=== PATIENT | female | born 1935 | race Caucasian/White ===

== ENCOUNTER 2020-05-12 10:03 | Emergency (ER) | payer MEDICARE, BC ==
[2020-05-12 10:34] VITALS: BP 198/75; PULSE 55
--- NOTE | 2020-05-12 10:39 | CR ---
PROCEDURE INFORMATION: Exam: XR Abdomen, 2 Views Exam date and time: 05/12/2020 10:13 AM Age: 84 years old Clinical indication: Other: Abdominal and back pain, constipation TECHNIQUE: Imaging protocol: XR of the abdomen. Views: 2 Views. COMPARISON: CT Abdomen Pelvis w Cont 04/12/2019 10:22 AM FINDINGS: Lungs: Clear lung bases. Gastrointestinal tract: Unobstructed bowel. Bowel loops have normal caliber. Mild retained mottled soft tissue density stool. Intraperitoneal space: No ascites. Organs: No organomegaly. Bones/joints: Diffuse spine degenerative change. No acute fracture. Soft tissues: The radiographic silhouette of a safety pin is superimposed upon the pubic symphysis. Other findings: No uroliths. IMPRESSION: 1. Possible mild constipation. Unobstructed bowel. 2. No acute abnormalities. 3. Midline pelvic safety CT pin, presumed attached to clothing. Clinical correlation is advised.
[2020-05-12] MEDS ORDERED: Lactulose Soln 10 GM/15 ML 30 ML UD Cup PO ONE (10:41)
[2020-05-12] MEDS ORDERED: Bisacodyl 10 MG Supp RECTAL ONE (10:41)
--- NOTE | 2020-05-12 10:54 | EDM.PDOC ---
"Scribed by Latisha Bhatt 05/12/20 1024 for Chip Florence MD ED HPI GENERAL MEDICAL PROBLEM - General Chief Complaint: Back Pain or Injury Stated Complaint: BACK PAIN/CONSTIPATION Time Seen by Provider: 05/12/20 10:14 Source of Information: Reports: Patient, RN, RN Notes Reviewed History Limitations: Reports: No Limitations - History of Present Illness INITIAL COMMENTS - FREE TEXT/NARRATIVE: Patient presents to ER by POV with c/o left back pain for two days and concern that she is constipated. She states she is constipated from the 650 mg Tylenol she takes for pain. She states she has also used lidocaine patches as well which are not helping. The pain is constant but it gets worse and sharp when moving. No nausea, vomiting or diarrhea. No fever or chills. Onset: Gradual Duration: Constant Location: Reports: Abdomen, Back Quality: Reports: Ache Severity: Moderate Improves with: Reports: None Worsens with: Reports: Medication (attributes constipation to medication side ef fect) Associated Symptoms: Reports: No Other Symptoms Treatments O[employer]UP[employer] HE[employer] MANAGER: Reports: Acetaminophen, Other Medication(s) Left Back Pain Score (Numeric/FACES): 8 - Related Data Allergies Allergy/AdvReac Type Severity Reaction Status Date / Time No Known Allergies Allergy Verified 05/12/20 10:23 Home Meds: Home Meds Aspirin [Ecotrin] 81 mg PO DAILY 02/14/18 [History] Calcium Carb/Magnesium Oxid/D3 [Calcium Magnesium + D] 2 tab PO DAILY 02/14/18 [History] Furosemide 1 tab PO DAILY 02/14/18 [History] Garlic 1 tab PO DAILY 02/14/18 [History] Herbal Drugs [Colon Herbal Cleanser] 3 cap PO BEDTIME 02/14/18 [History] Levothyroxine [Synthroid] 1 tab PO DAILY 02/14/18 [History] Losartan [Cozaar] 100 mg PO DAILY 02/14/18 [History] Metoprolol Succinate 1 tab PO DAILY 02/14/18 [History] Multivitamin [Multivitamins] 1 cap PO DAILY 02/14/18 [History] Multivitamin with Minerals [Multivitamins with Minerals] 1 tab PO DAILY 02/14/18 [History] Omeprazole 40 mg PO DAILY 02/14/18 [History] Sertraline HCl 1 tab PO DAILY 02/14/18 [History] Simvastatin [Zocor] 20 mg PO DAILY 02/14/18 [History] traZODone HCl [Trazodone HCl] 1 tab PO BEDTIME 02/14/18 [History] Past Medical History Cardiovascular History: Reports: High Cholesterol, Hypertension Gastrointestinal History: Reports: GERD Endocrine/Metabolic History: Reports: Hypothyroidism Oncologic (Cancer) History: Reports: Other (See Below) (Endometrial CA) Social & Family History - Family History Family Medical History: Noncontributory - Living Situation & Occupation Living situation: Reports: Alone Occupation: Retired ED ROS GENERAL - Review of Systems Review Of Systems: Comprehensive ROS is negative, except as noted in HPI. ED EXAM,LOWER BACK PAIN/INJURY - Physical Exam Exam: See Below Exam Limited By: No Limitations General Appearance: Alert, WD/WN, No Apparent Distress Throat/Mouth: Normal Inspection, Normal Voice, No Airway Compromise Head: Atraumatic, Normocephalic Neck: Normal Inspection Respiratory/Chest: No Respiratory Distress, Lungs Clear, Normal Breath Sounds, No Accessory Muscle Use, Chest Non-Tender Cardiovascular: Regular Rate, Rhythm GI/Abdominal: Normal Bowel Sounds, Soft, No Distention, Tender (Mild generalized tenderness, worse at LUQ and LLQ). No: Guarding, Rigid, Rebound (Female) Exam: Deferred Back Exam: Full Range of Motion, CVA Tenderness (L) (mild). No: CVA Tenderness (R), Vertebral Tenderness Extremities: Normal Inspection Neurological: Alert, No Motor/Sensory Deficits Psychiatric: Normal Mood Skin Exam: Warm, Dry, Intact, Normal Color, No Rash Course - Vital Signs Last Recorded V/S: Last Vital Signs Temp 97.8 F 05/12/20 10:33 Pulse 55 L 05/12/20 10:33 Resp 14 05/12/20 10:33 BP 198/75 H 05/12/20 10:33 Pulse Ox 100 05/12/20 10:33 - Orders/Labs/Meds Labs: Laboratory Tests 05/12/20 Range/Units 10:12 Urine Color Yellow (YELLOW) Urine Appearance Slightly cloudy (CLEAR) Urine pH 7.0 (5.0-9.0) Ur Specific [place] 1.025 (1.005-1.030) Urine Protein 100 H (NEGATIVE) Urine Glucose (UA) Negative (NEGATIVE) Urine Ketones Negative (NEGATIVE) Urine Occult Blood Trace-intact H (NEGATIVE) Urine Nitrite Negative (NEGATIVE) Urine Bilirubin Negative (NEGATIVE) Urine Urobilinogen 0.2 (0.2-1.0) mg/dL Ur Leukocyte Esterase Negative (NEGATIVE) Urine RBC 5-10 H /HPF Urine WBC 0-5 (0-5/HPF) /HPF Ur Epithelial Cells Few (NOT SEEN) /HPF Urine Bacteria Rare (0-FEW/HPF) /HPF Urine Mucus Few H (NOT SEEN) /LPF Meds: Medications Discontinued Medications Generic Name Dose Route Start Last Admin Trade Name Freq PRN Reason Stop Dose Admin Bisacodyl 10 mg 05/12/20 10:41 Dulcolax RECTAL 05/12/20 10:42 ONETIME ONE Lactulose 40 gm 05/12/20 10:41 Cephulac PO 05/12/20 10:42 ONETIME ONE - Radiology Interpretation Free Text/Narrative:: [facility] [place] [facility] Final Radiology Report Call: [phone] assistance Online chat: [email or web address] Name: MATTI DOVE Age: 84Years F Date: 05/12/2020 SSN: -- : [id number] Study: CR ABDOMEN 2V AP FLAT UPRIGHT Requesting Physician: CHIP FLORENCE Images: 3 Addl Studies: Provided Clinical History: abdominal and back pain, constipation Contrast: Contrast Medium: Contrast Amount: Contrast Method: Page 1 of 2 PROCEDURE INFORMATION: Exam: XR Abdomen, 2 Views Exam date and time: 05/12/2020 10:13 AM Age: 84 years old Clinical indication: Other: Abdominal and back pain, constipation TECHNIQUE: Imaging protocol: XR of the abdomen. Views: 2 Views. COMPARISON: CT Abdomen Pelvis w Cont 04/12/2019 10:22 AM FINDINGS: Lungs: Clear lung bases. Gastrointestinal tract: Unobstructed bowel. Bowel loops have normal caliber. Mild retained mottled soft tissue density stool. Intraperitoneal space: No ascites. Organs: No organomegaly. Bones/joints: Diffuse spine degenerative change. No acute fracture. Soft tissues: The radiographic silhouette of a safety pin is superimposed upon the pubic symphysis. Other findings: No uroliths. IMPRESSION: 1. Possible mild constipation. Unobstructed bowel. 2. No acute abnormalities. 3. Midline pelvic safety CT pin, presumed attached to clothing. Clinical correlation is advised. Thank you for allowing us to participate in the care of your patient. MATTI DOVE | Final Radiology Report CONFIDENTIALITY STATEMENT This report is intended only for use by the referring physician, and only in accordance with law. If you received this in error, call [phone]. Page 2 of 2 Dictated and Authenticated by: Sharath Chen MD 05/12/2020 10:39 AM Central Time ([place] & [place]) Departure - Departure Time of Disposition: 10:53 Disposition: Against Medical Advice 07 Condition: Good Clinical Impression: Constipation Qualifiers: Constipation type: drug induced constipation Qualified Code(s): K59.03 - Drug induced constipation Back pain Qualifiers: Back pain location: low back pain Chronicity: acute Back pain laterality: left Sciatica presence: without sciatica Qualified Code(s): M54.5 - Low back pain - Discharge Information *PRESCRIPTION DRUG MONITORING PROGRAM REVIEWED*: Not Applicable *COPY OF PRESCRIPTION DRUG MONITORING REPORT IN PATIENT RYAN: Not Applicable Instructions: Constipation, Adult, [id number] Forms: ED Department Discharge Additional Instructions: Rx: Lactulose Drink plenty of water or juice. Follow up in clinic if not improved in 1 to 2 days. Sepsis Event Note (ED) - Focused Exam Vital Signs: Vital Signs Temp Pulse Resp BP Pulse Ox 05/12/20 10:33 97.8 F 55 L 14 198/75 H 100 I have read and agree with the documentation that has been completed regarding this visit. By signing this record, I attest that the documentation was completed in my physical presence and is an accurate record of the encounter."
== END 2020-05-12 11:06 | disposition home or self-care (01) ==
LOC: DL.ED 10:03
DX: K59.03 Drug induced constipation (principal); M54.5 Low back pain; T39.1X5A Adverse effect of 4-Aminophenol derivatives, initial encounter; E78.00 Pure hypercholesterolemia, unspecified; I10 Essential (primary) hypertension; Z79.82 Long term (current) use of aspirin; E03.9 Hypothyroidism, unspecified
CPT/HCPCS: 74019; 81001; 99283; A9270

== ENCOUNTER 2023-01-26 05:22 | Day surgery (SDC) | payer MEDICARE, BC ==
[~2023-01-26 05:22] MED LIST: Sodium Chloride 0.9% 10 ML Syringe FLUSH PRN; Sodium Chloride 0.9% 10 ML Syringe FLUSH SCH
[2023-01-26] MEDS ORDERED: fentaNYL 100 MCG/2 ML SDV IV ONE (05:23)
[2023-01-26] MEDS ORDERED: Midazolam 1 MG/ML 2 ML SDV IV ONE (05:23)
[2023-01-26] MEDS: Dextrose 5%-0.45% NaCl 1,000 ML IV SCH (06:07)
[2023-01-26] MEDS ORDERED: Midazolam 1 MG/ML 2 ML SDV ONE (06:13)
[2023-01-26] MEDS ORDERED: fentaNYL 100 MCG/2 ML SDV ONE (06:14)
[2023-01-26] MEDS: fentaNYL 100 MCG/2 ML SDV IV ONE ×3 (06:28→06:32)
[2023-01-26] MEDS: Midazolam 1 MG/ML 2 ML SDV IV ONE ×4 (06:29→06:40)
[2023-01-26 08:04] VITALS: BP 121/89; PULSE 53
== END 2023-01-26 08:43 | disposition home or self-care (01) ==
LOC: DL.ENDO 05:22
PROVIDERS: ATTEND Internal Medicine Gastroenterology
DX: K57.30 Diverticulosis of large intestine without perforation or abscess without bleeding (principal); K63.89 Other specified diseases of intestine; K21.9 Gastro-esophageal reflux disease without esophagitis; I10 Essential (primary) hypertension; E03.9 Hypothyroidism, unspecified; G47.00 Insomnia, unspecified; E78.5 Hyperlipidemia, unspecified; G47.33 Obstructive sleep apnea (adult) (pediatric); E66.09 Other obesity due to excess calories
CPT/HCPCS: J2250; J3010; J7042

== ENCOUNTER 2023-08-09 09:23 | Emergency (ER) | payer MEDICARE, BC ==
[2023-08-09 10:19] VITALS: BP 162/64; PULSE 58
== END 2023-08-09 10:43 | disposition home or self-care (01) ==
LOC: DL.ED 09:23
DX: S09.90XA Unspecified injury of head, initial encounter (principal); E78.00 Pure hypercholesterolemia, unspecified; I10 Essential (primary) hypertension; K21.9 Gastro-esophageal reflux disease without esophagitis; E03.9 Hypothyroidism, unspecified; Z79.82 Long term (current) use of aspirin; Z79.899 Other long term (current) drug therapy; W01.198A Fall on same level from slipping, tripping and stumbling with subsequent striking against other object, initial encounter
CPT/HCPCS: 70450; 72125; 99283

== ENCOUNTER 2024-03-28 13:17 | Inpatient (IN) | payer MEDICARE, BC ==
[2024-03-28] MEDS ORDERED: hydrALAZINE 20 MG/ML SDV IVPUSH PRN (14:02)
[2024-03-28] MEDS ORDERED: Metoprolol Tartrate 5 MG/5 ML SDV IVPUSH PRN (14:02)
[2024-03-28] MEDS ORDERED: Sodium Chloride 0.9% 10 ML Syringe FLUSH PRN (14:02)
[2024-03-28] MEDS ORDERED: Naloxone 2 MG/2 ML Syringe IVPUSH PRN (14:02)
[2024-03-28] MEDS ORDERED: Magnesium Hydroxide 400 MG/5 ML Susp 30 ML Cup PO PRN (14:02)
[2024-03-28] MEDS ORDERED: Albuterol/Ipratropium 3.0-0.5 MG/3 ML Neb Soln NEB PRN (14:02)
[2024-03-28] MEDS ORDERED: Polyethylene Glycol 3350 Powder 17 GM Packet PO PRN (14:02)
[2024-03-28] MEDS ORDERED: HYDROmorphone 0.5 MG/0.5 ML Syringe IVPUSH PRN (14:02)
[2024-03-28] MEDS ORDERED: Ondansetron 4 MG/2 ML SDV IVPUSH PRN (14:02)
[2024-03-28 14:29] LABS: HEMATOCRIT 36.8 % (37.0-47.0); HEMOGLOBIN 11.6 g/dL (12.0-16.0); MEAN CORPUSCULAR HEMOGLOBIN 32.4 pg (27.0-34.0); MEAN CORPUSCULAR HGB CONC 31.5 g/dL (33.0-35.0); MEAN CORPUSCULAR VOLUME 102.8 fL (80-100); PLATELET COUNT,PLT 92 10^3/uL (150-450); RED BLOOD CELL COUNT 3.58 10^6/uL (4.2-5.4); WHITE BLOOD CELL COUNT,WBC 2.9 10^3/uL (5.0-10.0)
[2024-03-28 14:31] LABS: BASOPHILS PERCENT AUTO 6.2 % (0.0-1.0); EOSINOPHILS PERCENT AUTO 2.1 % (1.0-3.0); LYMPHOCYTES PERCENT AUTO 29.6 % (20.5-50.1); MONOCYTES PERCENT AUTO 36.8 % (2-8); NEUTROPHILS PERCENT AUTO 25.3 % (42.2-75.2)
[2024-03-28 14:47] LABS: A/G RATIO 0.9; ALANINE AMINOTRANSFERASE,ALT 16 U/L (14-59); ALBUMIN 3.5 g/dL (3.4-5.0); ALKALINE PHOSPHATASE 49 U/L (46-116); ANION GAP 10.1 mEq/L (7-13); ASPARTATE AMNIOTRANSFERASE,AST 17 U/L (15-37); BILIRUBIN TOTAL 0.5 mg/dL (0.2-1.0); BLOOD UREA NITROGEN,BUN 11 mg/dL (7-18); BUN/CREATININE RATIO 15.1 (No establ ref range); CALCIUM 9.1 mg/dL (8.5-10.1); CARBON DIOXIDE,CO2 34 mmol/L (21-32); CHLORIDE,CL 103 mmol/L (98-107); CREATININE 0.73 mg/dL (0.55-1.02); EST CRCL DRUG DOSING (CG) 44.06 mL/min; GLUCOSE RANDOM 106 mg/dL (70-99); POTASSIUM,K 4.1 mmol/L (3.5-5.1); PROTEIN TOTAL,TP 7.2 g/dL (6.4-8.2); SODIUM,NA 143 mmol/L (136-145)
[2024-03-28 14:48] LABS: C-REACTIVE PROTEIN < 0.50 ng/dL (<=0.50); ESTIMATED GFR 79 mL/min (>=60)
[2024-03-28 15:01] LABS: BAND PERCENT MAN 3 %; LYMPHOCYTES PERCENT MAN 38 % (20-50); SEG NEUTROPHILS PERCENT MAN 33 % (42-75)
[2024-03-28 15:02] LABS: MONOCYTES PERCENT MAN 26 % (2-8)
[2024-03-28] MEDS: cefTRIAXone 1 GM Vial IVPUSH ONE (15:29)
[2024-03-28] MEDS: Azithromycin 500 MG in Sodium Chloride 0.9% 250 ML IV ONE (15:30)
[2024-03-28] MEDS: Saccharomyces Boulardii (Probiotic) 250 MG Cap PO SCH (20:55)
[2024-03-28] MEDS: Simvastatin 40 MG Tab PO SCH (20:56)
[2024-03-28] MEDS: traZODone 50 MG Tab PO SCH (20:56)
[2024-03-28] MEDS: guaiFENesin 600 MG Tab.ER PO SCH (20:56)
[2024-03-28] MEDS: Sennosides/Docusate Sodium 50-8.6 MG Tab PO PRN (21:01)
[2024-03-28] MEDS: Sodium Chloride 0.9% 10 ML Syringe FLUSH SCH (21:50)
[2024-03-29] MEDS: Levothyroxine 50 MCG Tab PO SCH (05:25)
[2024-03-29 07:44] LABS: WHITE BLOOD CELL COUNT,WBC 3.5 10^3/uL (5.0-10.0)
[2024-03-29 07:45] LABS: BASOPHILS PERCENT AUTO 5.5 % (0.0-1.0); EOSINOPHILS PERCENT AUTO 1.4 % (1.0-3.0); HEMATOCRIT 36.3 % (37.0-47.0); HEMOGLOBIN 11.2 g/dL (12.0-16.0); LYMPHOCYTES PERCENT AUTO 27.2 % (20.5-50.1); MEAN CORPUSCULAR HEMOGLOBIN 32.2 pg (27.0-34.0); MEAN CORPUSCULAR HGB CONC 30.9 g/dL (33.0-35.0); MEAN CORPUSCULAR VOLUME 104.3 fL (80-100); MONOCYTES PERCENT AUTO 39.6 % (2-8); NEUTROPHILS PERCENT AUTO 26.3 % (42.2-75.2); PLATELET COUNT,PLT 76 10^3/uL (150-450); RED BLOOD CELL COUNT 3.48 10^6/uL (4.2-5.4)
[2024-03-29 08:15] LABS: ANION GAP 9.6 mEq/L (7-13); CARBON DIOXIDE,CO2 33 mmol/L (21-32); CHLORIDE,CL 107 mmol/L (98-107); POTASSIUM,K 4.6 mmol/L (3.5-5.1); SODIUM,NA 145 mmol/L (136-145)
[2024-03-29 08:16] LABS: A/G RATIO 0.89; ALANINE AMINOTRANSFERASE,ALT 11 U/L (14-59); ALBUMIN 3.2 g/dL (3.4-5.0); ALKALINE PHOSPHATASE 47 U/L (46-116); ASPARTATE AMNIOTRANSFERASE,AST 18 U/L (15-37); BILIRUBIN TOTAL 0.4 mg/dL (0.2-1.0); BLOOD UREA NITROGEN,BUN 10 mg/dL (7-18); BUN/CREATININE RATIO 13.3 (No establ ref range); CALCIUM 9.1 mg/dL (8.5-10.1); CREATININE 0.75 mg/dL (0.55-1.02); EST CRCL DRUG DOSING (CG) 42.89 mL/min; ESTIMATED GFR 77 mL/min (>=60); GLUCOSE RANDOM 110 mg/dL (70-99); PROTEIN TOTAL,TP 6.8 g/dL (6.4-8.2)
[2024-03-29 08:17] LABS: C-REACTIVE PROTEIN < 0.50 ng/dL (<=0.50)
[2024-03-29] MEDS ORDERED: Metoprolol Succinate 50 MG Tab.ER PO SCH (09:00)
[2024-03-29 09:04] LABS: LYMPHOCYTES PERCENT MAN 27 % (20-50); SEG NEUTROPHILS PERCENT MAN 30 % (42-75)
[2024-03-29 09:05] LABS: BASOPHILS PERCENT MAN 4; EOSINOPHILS PERCENT MAN 2 % (1-3); MONOCYTES PERCENT MAN 37 % (2-8)
[2024-03-29] MEDS: Aspirin 81 MG Tab.EC PO SCH (10:21)
[2024-03-29] MEDS: Furosemide 40 MG Tab PO SCH (10:21)
[2024-03-29] MEDS: Omeprazole 20 MG Cap.CR PO SCH (10:21)
[2024-03-29] MEDS: Losartan 50 MG Tab PO SCH (10:22)
[2024-03-29] MEDS: Metoprolol Succinate 50 MG Tab.ER PO SCH (10:22)
[2024-03-29] MEDS: Lisinopril 10 MG Tab PO SCH (10:23)
[2024-03-29] MEDS: Multivitamin Tab PO SCH (10:23)
[2024-03-29] MEDS: cefTRIAXone 1 GM Vial IVPUSH SCH (10:23)
[2024-03-29] MEDS: Azithromycin 500 MG in Sodium Chloride 0.9% 250 ML IV SCH (10:24)
[2024-03-29] MEDS: amLODIPine 5 MG Tab PO SCH (10:41)
[2024-03-29] MEDS: Acetaminophen 325 MG Tab PO PRN (17:04)
[2024-03-29] MEDS: Melatonin 3 MG Tab PO PRN (20:45)
[2024-03-29] MEDS ORDERED: LORazepam 2 MG/ML SDV IVPUSH PRN (21:10)
[2024-03-30 07:10] LABS: ALBUMIN 2.9 g/dL (3.4-5.0); ANION GAP 7.2 mEq/L (7-13); BILIRUBIN TOTAL 0.4 mg/dL (0.2-1.0); BUN/CREATININE RATIO 17.9 (No establ ref range); C-REACTIVE PROTEIN 0.53 ng/dL (<=0.50); CALCIUM 8.8 mg/dL (8.5-10.1); CREATININE 0.67 mg/dL (0.55-1.02); EST CRCL DRUG DOSING (CG) 48.01 mL/min; MAGNESIUM 1.9 mg/dL (1.8-2.4); POTASSIUM,K 4.2 mmol/L (3.5-5.1); PROTEIN TOTAL,TP 6.4 g/dL (6.4-8.2)
[2024-03-30 07:12] LABS: A/G RATIO 0.83
[2024-03-30] MEDS ORDERED: Morphine 10 MG/ML Syringe IVPUSH ONE (07:49)
[2024-03-30] MEDS ORDERED: Morphine 10 MG/ML Syringe IVPUSH PRN (07:49)
[2024-03-30 09:51] LABS: EOSINOPHILS PERCENT MAN 1 % (1-3); LYMPHOCYTES PERCENT MAN 35 % (20-50); MONOCYTES PERCENT MAN 30 % (2-8); SEG NEUTROPHILS PERCENT MAN 34 % (42-75)
[2024-03-30] MEDS: traMADol 50 MG Tab PO PRN (12:23)
[2024-03-30] MEDS: hydrALAZINE 25 MG Tab PO STA (13:21)
[2024-03-30 14:33] VITALS: BP 156/67; PULSE 57
== END 2024-03-30 15:20 | disposition home or self-care (01) | DRG 193 ==
LOC: DL.MS 13:17
PROVIDERS: ADMIT Internal Medicine; ATTEND Internal Medicine
DX: J18.9 Pneumonia, unspecified organism (principal); J96.01 Acute respiratory failure with hypoxia; E11.9 Type 2 diabetes mellitus without complications; E03.9 Hypothyroidism, unspecified; E66.9 Obesity, unspecified; Z66 Do not resuscitate; K21.9 Gastro-esophageal reflux disease without esophagitis; G47.33 Obstructive sleep apnea (adult) (pediatric); G89.29 Other chronic pain; M54.50 Low back pain, unspecified; I10 Essential (primary) hypertension; F32.A Depression, unspecified; M19.90 Unspecified osteoarthritis, unspecified site; K59.09 Other constipation; Z79.82 Long term (current) use of aspirin; Z79.890 Hormone replacement therapy; Z79.899 Other long term (current) drug therapy; Z98.49 Cataract extraction status, unspecified eye; Z90.710 Acquired absence of both cervix and uterus; Z68.34 Body mass index [BMI] 34.0-34.9, adult
CPT/HCPCS: 36415; 71045; 72125; 73200-RT; 80053; 83735; 85025; 86140; 87804; A9270-GY; J0456; J0696; J3490; J7050; U0002

== ENCOUNTER 2024-09-13 13:15 | Inpatient (IN) | payer MEDICARE, BC ==
[2024-09-13] MEDS: Sodium Chloride 0.9% 1,000 ML IV ONE (13:26)
[2024-09-13] MEDS: Albuterol 0.083% 2.5 MG/3 ML Neb Soln NEB ONE (13:26)
[2024-09-13 13:37] LABS: HEMATOCRIT 31.4 % (37.0-47.0); HEMOGLOBIN 10.3 g/dL (12.0-16.0); MEAN CORPUSCULAR HEMOGLOBIN 31.8 pg (27.0-34.0); MEAN CORPUSCULAR HGB CONC 32.8 g/dL (33.0-35.0); MEAN CORPUSCULAR VOLUME 96.9 fL (80-100); PLATELET COUNT,PLT 130 10^3/uL (150-450); RED BLOOD CELL COUNT 3.24 10^6/uL (4.2-5.4); WHITE BLOOD CELL COUNT,WBC 33.6 10^3/uL (5.0-10.0)
[2024-09-13 13:53] LABS: ALANINE AMINOTRANSFERASE,ALT 20 U/L (14-59); ALBUMIN 2.6 g/dL (3.4-5.0); ALKALINE PHOSPHATASE 71 U/L (46-116); ANION GAP 10.5 mEq/L (7-13); ASPARTATE AMNIOTRANSFERASE,AST 25 U/L (15-37); BILIRUBIN TOTAL 0.6 mg/dL (0.2-1.0); BLOOD UREA NITROGEN,BUN 45 mg/dL (7-18); CALCIUM 9.1 mg/dL (8.5-10.1); CARBON DIOXIDE,CO2 33 mmol/L (21-32); CHLORIDE,CL 89 mmol/L (98-107); CREATININE 2.65 mg/dL (0.55-1.02); EST CRCL DRUG DOSING (CG) 12.43 mL/min; GLUCOSE RANDOM 134 mg/dL (70-99); MAGNESIUM 1.6 mg/dL (1.8-2.4); POTASSIUM,K 3.5 mmol/L (3.5-5.1); PROTEIN TOTAL,TP 7.3 g/dL (6.4-8.2); SODIUM,NA 129 mmol/L (136-145)
[2024-09-13 13:56] LABS: LACTIC ACID 1.5 mmol/L (0.4-2.0)
[2024-09-13] MEDS: Piperacillin/Tazobactam 4.5 GM in Sodium Chloride 0.9% 100 ML IV ONE (14:04)
[2024-09-13 14:05] LABS: A/G RATIO 0.55; C-REACTIVE PROTEIN > 25.00 ng/dL (<=0.50); ESTIMATED GFR 17 mL/min (>=60)
[2024-09-13 14:11] LABS: BAND PERCENT MAN 6 %; LYMPHOCYTES PERCENT MAN 7 % (20-50); MONOCYTES PERCENT MAN 10 % (2-8); SEG NEUTROPHILS PERCENT MAN 77 % (42-75)
[2024-09-13 14:13] LABS: APPEARANCE,URINE SLIGHTLY CLOUDY (CLEAR); BILIRUBIN,URINE SMALL (NEGATIVE); COLOR,URINE YELLOW (YELLOW); GLUCOSE,URINE NEGATIVE (NEGATIVE); KETONES,URINE NEGATIVE (NEGATIVE); LEUKOCYTE ESTERASE,URINE TRACE (NEGATIVE); NITRITE,URINE NEGATIVE (NEGATIVE); OCCULT BLOOD,URINE SMALL (NEGATIVE); PH,URINE 5.5 (5.0-9.0); PROTEIN,URINE >=300 (NEGATIVE); UROBILINOGEN,URINE 0.2 mg/dL (0.2-1.0)
[2024-09-13 14:36] LABS: RBC,URINE 50-75 /HPF (0-5); WBC,URINE 20-30 /HPF (0-5/HPF)
[2024-09-13 14:37] LABS: AMORPHOUS SEDIMENT,URINE MODERATE /HPF (NOT SEEN); BACTERIA,URINE MODERATE /HPF (0-FEW/HPF); EPITHELIAL CELLS,URINE FEW /HPF (NOT SEEN); HYALINE CASTS,URINE RARE; MUCUS,URINE FEW /LPF (NOT SEEN)
[2024-09-13] MEDS: VANCOmycin 1.75 GM in Sodium Chloride 0.9% 500 ML IV ONE (14:56)
[2024-09-13] MEDS: Magnesium Sulfate/Water Premix 2 GM in Premix Bag 1 BAG IV ONE (14:56)
[2024-09-13] MEDS: VANCOmycin 750 MG SDV ONE (14:57)
[2024-09-13] MEDS: Sodium Chloride 0.9% 500 ML IV SCH (15:35)
[2024-09-13] MEDS ORDERED: Metoprolol Tartrate 5 MG/5 ML SDV IVPUSH PRN (17:00)
[2024-09-13] MEDS ORDERED: Sennosides/Docusate Sodium 50-8.6 MG Tab PO PRN (17:09)
[2024-09-13] MEDS ORDERED: Polyethylene Glycol 3350 Powder 17 GM Packet PO PRN (17:09)
[2024-09-13] MEDS ORDERED: Magnesium Hydroxide 400 MG/5 ML Susp 30 ML Cup PO PRN (17:09)
[2024-09-13] MEDS ORDERED: Bisacodyl 5 MG Tab PO PRN (17:09)
[2024-09-13] MEDS ORDERED: HYDROmorphone 0.5 MG/0.5 ML Syringe IVPUSH PRN (17:09)
[2024-09-13] MEDS ORDERED: Metoclopramide 10 MG/2 ML SDV IV PRN (17:09)
[2024-09-13] MEDS ORDERED: Melatonin 3 MG Tab PO PRN (17:09)
[2024-09-13] MEDS ORDERED: Naloxone 2 MG/2 ML Syringe IVPUSH PRN (17:09)
[2024-09-13] MEDS ORDERED: Ondansetron 4 MG/2 ML SDV IVPUSH PRN (17:09)
[2024-09-13] MEDS: Lactated Ringers 1,500 ML IV SCH (17:47)
[2024-09-13] MEDS: traZODone 50 MG Tab PO SCH (20:41)
[2024-09-13] MEDS: hydrALAZINE 25 MG Tab PO SCH (20:41)
[2024-09-13] MEDS: Saccharomyces Boulardii (Probiotic) 250 MG Cap PO SCH (20:41)
[2024-09-13] MEDS: Acetaminophen 325 MG Tab PO PRN (21:35)
[2024-09-14 06:36] LABS: HEMATOCRIT 29.1 % (37.0-47.0); HEMOGLOBIN 9.1 g/dL (12.0-16.0); MEAN CORPUSCULAR HGB CONC 31.3 g/dL (33.0-35.0); PLATELET COUNT,PLT 122 10^3/uL (150-450); RED BLOOD CELL COUNT 2.94 10^6/uL (4.2-5.4); WHITE BLOOD CELL COUNT,WBC 24.2 10^3/uL (5.0-10.0)
[2024-09-14 06:57] LABS: ALANINE AMINOTRANSFERASE,ALT 16 U/L (14-59); ALKALINE PHOSPHATASE 64 U/L (46-116); ANION GAP 9.7 mEq/L (7-13); ASPARTATE AMNIOTRANSFERASE,AST 21 U/L (15-37); BILIRUBIN TOTAL 0.4 mg/dL (0.2-1.0); BLOOD UREA NITROGEN,BUN 43 mg/dL (7-18); BUN/CREATININE RATIO 18.5 (No establ ref range); CALCIUM 8.6 mg/dL (8.5-10.1); CARBON DIOXIDE,CO2 33 mmol/L (21-32); CHLORIDE,CL 97 mmol/L (98-107); CREATININE 2.33 mg/dL (0.55-1.02); EST CRCL DRUG DOSING (CG) 14.13 mL/min; GLUCOSE RANDOM 126 mg/dL (70-99); MAGNESIUM 2.2 mg/dL (1.8-2.4); POTASSIUM,K 3.7 mmol/L (3.5-5.1); PROTEIN TOTAL,TP 6.3 g/dL (6.4-8.2); SODIUM,NA 136 mmol/L (136-145)
[2024-09-14 06:59] LABS: BAND PERCENT MAN 1 %; LYMPHOCYTES PERCENT MAN 2 % (20-50); MONOCYTES PERCENT MAN 14 % (2-8); SEG NEUTROPHILS PERCENT MAN 83 % (42-75)
[2024-09-14 07:06] LABS: A/G RATIO 0.47; C-REACTIVE PROTEIN > 25.00 ng/dL (<=0.50); ESTIMATED GFR 20 mL/min (>=60)
[2024-09-14] MEDS: Multivitamin Tab PO SCH (09:23)
[2024-09-14] MEDS: Omeprazole 20 MG Cap.CR PO SCH (09:23)
[2024-09-14] MEDS: Aspirin 81 MG Tab.EC PO SCH (09:24)
[2024-09-14] MEDS: Escitalopram 10 MG Tab PO SCH (09:24)
[2024-09-14] MEDS: Levothyroxine 50 MCG Tab PO SCH (09:28)
[2024-09-14] MEDS: Azithromycin 500 MG in Sodium Chloride 0.9% 250 ML IV SCH (09:29)
[2024-09-14] MEDS: Ampicillin/Sulbactam Na 1.5 GM in Sodium Chloride 0.9% 100 ML IV SCH (12:16)
[2024-09-14] MEDS: Albuterol/Ipratropium 3.0-0.5 MG/3 ML Neb Soln NEB PRN (18:00)
[2024-09-15 06:29] LABS: HEMATOCRIT 28.1 % (37.0-47.0); HEMOGLOBIN 9.2 g/dL (12.0-16.0); MEAN CORPUSCULAR HEMOGLOBIN 31.9 pg (27.0-34.0); MEAN CORPUSCULAR HGB CONC 32.7 g/dL (33.0-35.0); MEAN CORPUSCULAR VOLUME 97.6 fL (80-100); PLATELET COUNT,PLT 126 10^3/uL (150-450); RED BLOOD CELL COUNT 2.88 10^6/uL (4.2-5.4); WHITE BLOOD CELL COUNT,WBC 19.1 10^3/uL (5.0-10.0)
[2024-09-15 06:57] LABS: ALBUMIN 1.8 g/dL (3.4-5.0); ANION GAP 10.1 mEq/L (7-13); BILIRUBIN TOTAL 0.4 mg/dL (0.2-1.0); C-REACTIVE PROTEIN 23.08 ng/dL (<=0.50); CALCIUM 8.4 mg/dL (8.5-10.1); CREATININE 1.73 mg/dL (0.55-1.02); EST CRCL DRUG DOSING (CG) 19.04 mL/min; POTASSIUM,K 3.1 mmol/L (3.5-5.1); PROTEIN TOTAL,TP 5.9 g/dL (6.4-8.2)
[2024-09-15 07:01] LABS: A/G RATIO 0.44
[2024-09-15 07:17] LABS: BAND PERCENT MAN 13 %; LYMPHOCYTES PERCENT MAN 3 % (20-50); MONOCYTES PERCENT MAN 10 % (2-8); SEG NEUTROPHILS PERCENT MAN 74 % (42-75)
[2024-09-15] MEDS: Sodium Chloride 0.9% 10 ML Syringe FLUSH PRN (08:08)
[2024-09-15] MEDS: Potassium Chloride 10 MEQ Tab.ER PO ONE (09:39)
[2024-09-15] MEDS ORDERED: Benzocaine/Cetylpyridinium/Menthol Lozenge MUCMEM PRN (19:22)
[2024-09-15] MEDS: cefTRIAXone 2 GM Vial IVPUSH ONE (21:24)
[2024-09-16] MEDS: Lidocaine 5% 700 MG Patch TOP SCH (00:27)
[2024-09-16 06:25] LABS: HEMATOCRIT 28.6 % (37.0-47.0); HEMOGLOBIN 9.1 g/dL (12.0-16.0); MEAN CORPUSCULAR HEMOGLOBIN 31.5 pg (27.0-34.0); MEAN CORPUSCULAR HGB CONC 31.8 g/dL (33.0-35.0); PLATELET COUNT,PLT 137 10^3/uL (150-450); RED BLOOD CELL COUNT 2.89 10^6/uL (4.2-5.4); WHITE BLOOD CELL COUNT,WBC 19.9 10^3/uL (5.0-10.0)
[2024-09-16 07:01] LABS: ALBUMIN 1.8 g/dL (3.4-5.0); ANION GAP 10.8 mEq/L (7-13); BILIRUBIN TOTAL 0.3 mg/dL (0.2-1.0); BUN/CREATININE RATIO 21.9 (No establ ref range); C-REACTIVE PROTEIN 18.4 ng/dL (<=0.50); CALCIUM 8.4 mg/dL (8.5-10.1); CREATININE 1.28 mg/dL (0.55-1.02); EST CRCL DRUG DOSING (CG) 25.73 mL/min; MAGNESIUM 2.1 mg/dL (1.8-2.4); POTASSIUM,K 3.8 mmol/L (3.5-5.1); PROTEIN TOTAL,TP 6.3 g/dL (6.4-8.2)
[2024-09-16 07:04] LABS: A/G RATIO 0.4
[2024-09-16 08:31] LABS: BAND PERCENT MAN 12 %; SEG NEUTROPHILS PERCENT MAN 67 % (42-75)
[2024-09-16 08:32] LABS: LYMPHOCYTES PERCENT MAN 2 % (20-50); METAMYELOCYTE PERCENT MAN 2; MONOCYTES PERCENT MAN 15 % (2-8); MYELOCYTE PERCENT MAN 2; PLATELET COUNT ESTIMATE DECREASED
[2024-09-16] MEDS: cefTRIAXone 1 GM Vial IVPUSH SCH (09:30)
[2024-09-16 14:21] LABS: CORONAVIRUS COVID-19 NAA NEGATIVE (NEGATIVE); INFLUENZA A NAA NEGATIVE (NEGATIVE); INFLUENZA B NAA NEGATIVE (NEGATIVE); RESPIRATORY SYNCYTIAL VIR NAA NEGATIVE (NEGATIVE)
[2024-09-16] MEDS: Simethicone 80 MG Tab.Chew PO PRN (21:06)
[2024-09-17 06:23] LABS: HEMATOCRIT 27.3 % (37.0-47.0); HEMOGLOBIN 8.6 g/dL (12.0-16.0); MEAN CORPUSCULAR HGB CONC 31.5 g/dL (33.0-35.0); MEAN CORPUSCULAR VOLUME 101.5 fL (80-100); PLATELET COUNT,PLT 141 10^3/uL (150-450); RED BLOOD CELL COUNT 2.69 10^6/uL (4.2-5.4); WHITE BLOOD CELL COUNT,WBC 20.2 10^3/uL (5.0-10.0)
[2024-09-17 06:34] LABS: ALBUMIN 1.7 g/dL (3.4-5.0); ANION GAP 10.2 mEq/L (7-13); BILIRUBIN TOTAL 0.3 mg/dL (0.2-1.0); BUN/CREATININE RATIO 21.4 (No establ ref range); C-REACTIVE PROTEIN 15.95 ng/dL (<=0.50); CALCIUM 8.5 mg/dL (8.5-10.1); CREATININE 1.03 mg/dL (0.55-1.02); EST CRCL DRUG DOSING (CG) 31.97 mL/min; POTASSIUM,K 4.2 mmol/L (3.5-5.1); PROTEIN TOTAL,TP 6.4 g/dL (6.4-8.2)
[2024-09-17 06:44] LABS: A/G RATIO 0.36
[2024-09-17] MEDS ORDERED: Modafinil 100 MG Tab PO SCH (08:00)
[2024-09-17] MEDS: traMADol 50 MG Tab PO PRN (08:51)
[2024-09-17] MEDS: Modafinil 100 MG Tab PO SCH (08:53)
[2024-09-17 09:12] LABS: BAND PERCENT MAN 7 %; LYMPHOCYTES PERCENT MAN 15 % (20-50); METAMYELOCYTE PERCENT MAN 2; MONOCYTES PERCENT MAN 14 % (2-8); MYELOCYTE PERCENT MAN 4; SEG NEUTROPHILS PERCENT MAN 58 % (42-75)
[2024-09-17 09:13] LABS: GIANT PLATELETS FEW; PLASMACYTOID LYMPHOCYTES RARE; PLATELET COUNT ESTIMATE DECREASED; REACTIVE LYMPHOCYTES MODERATE
[2024-09-17] MEDS: Albumin 25% 12.5 GM in Premix Bag 1 BAG IV SCH (10:26)
[2024-09-17] MEDS: Furosemide 100 MG in Sodium Chloride 0.9% 90 ML IV SCH (11:07)
[2024-09-17] MEDS: Losartan 25 MG Tab PO ONE (12:21)
[2024-09-17] MEDS: hydrALAZINE 20 MG/ML SDV IVPUSH PRN (17:41)
[2024-09-17] MEDS ORDERED: 50% Dextrose in Water 50 ML Syringe IVPUSH PRN (23:21)
[2024-09-17] MEDS ORDERED: Glucagon,Human Recombinant 1 MG Vial IM PRN (23:21)
[2024-09-18] MEDS: Insulin Lispro 100 Units/ML 3 ML Vial SUBCUT SCH (00:56)
[2024-09-18 09:23] LABS: HEMATOCRIT 28.1 % (37.0-47.0); HEMOGLOBIN 8.7 g/dL (12.0-16.0); MEAN CORPUSCULAR HEMOGLOBIN 31.9 pg (27.0-34.0); MEAN CORPUSCULAR VOLUME 102.9 fL (80-100); PLATELET COUNT,PLT 143 10^3/uL (150-450); RED BLOOD CELL COUNT 2.73 10^6/uL (4.2-5.4); WHITE BLOOD CELL COUNT,WBC 18.8 10^3/uL (5.0-10.0)
[2024-09-18] MEDS: Metoprolol Succinate 25 MG Tab.ER PO SCH (09:32)
[2024-09-18] MEDS: Losartan 25 MG Tab PO SCH (09:34)
[2024-09-18 09:41] LABS: ALBUMIN 2.6 g/dL (3.4-5.0); ANION GAP 6.6 mEq/L (7-13); BILIRUBIN TOTAL 0.3 mg/dL (0.2-1.0); BUN/CREATININE RATIO 14.8 (No establ ref range); C-REACTIVE PROTEIN 13.51 ng/dL (<=0.50); CALCIUM 8.6 mg/dL (8.5-10.1); CREATININE 1.15 mg/dL (0.55-1.02); EST CRCL DRUG DOSING (CG) 28.64 mL/min; MAGNESIUM 1.7 mg/dL (1.8-2.4); POTASSIUM,K 3.6 mmol/L (3.5-5.1)
[2024-09-18 09:42] LABS: A/G RATIO 0.59
[2024-09-18 10:59] LABS: BAND PERCENT MAN 3 %; LYMPHOCYTES PERCENT MAN 17 % (20-50); MONOCYTES PERCENT MAN 19 % (2-8); SEG NEUTROPHILS PERCENT MAN 61 % (42-75)
[2024-09-18 11:00] LABS: ATYPICAL LYMPHOCYTES FEW
[2024-09-18 11:11] VITALS: BP 138/66; PULSE 87
[2024-09-18] MEDS: Acetaminophen 325 MG Tab PO ONE (12:17)
[2024-09-18] MEDS ORDERED: Acetaminophen 325 MG Tab PO SCH (21:00)
[2024-09-18] MEDS ORDERED: Mirtazapine 15 MG Tab PO SCH (21:00)
[2024-09-19] MEDS ORDERED: Modafinil 100 MG Tab PO SCH (09:00)
[2024-09-19] MEDS ORDERED: Modafinil 100 MG Tab PO ONE (11:00)
== END 2024-09-18 14:55 | disposition swing bed (61) | DRG 871 ==
LOC: DL.ED 13:15 → DL.MS 15:18
PROVIDERS: ADMIT Internal Medicine; ATTEND Internal Medicine
PROC: 3E03329 Introduction of Other Anti-infective into Peripheral Vein, Percutaneous Approach (ICD-10-PCS; principal; 2024-09-13)
PROC: 5A09357 Assistance with Respiratory Ventilation, Less than 24 Consecutive Hours, Continuous Positive Airway Pressure (ICD-10-PCS; 2024-09-13)
DX: A41.9 Sepsis, unspecified organism (principal); A41.51 Sepsis due to Escherichia coli [E. coli]; J96.01 Acute respiratory failure with hypoxia; N39.0 Urinary tract infection, site not specified; N17.9 Acute kidney failure, unspecified; E87.1 Hypo-osmolality and hyponatremia; I10 Essential (primary) hypertension; R65.20 Severe sepsis without septic shock; E86.0 Dehydration; Z66 Do not resuscitate; H91.90 Unspecified hearing loss, unspecified ear; H54.7 Unspecified visual loss; E78.00 Pure hypercholesterolemia, unspecified; K59.09 Other constipation; K21.9 Gastro-esophageal reflux disease without esophagitis; M19.90 Unspecified osteoarthritis, unspecified site; E03.9 Hypothyroidism, unspecified; F32.A Depression, unspecified; Z96.659 Presence of unspecified artificial knee joint; I11.0 Hypertensive heart disease with heart failure; I50.9 Heart failure, unspecified; E83.42 Hypomagnesemia; I27.20 Pulmonary hypertension, unspecified; G47.33 Obstructive sleep apnea (adult) (pediatric); G89.29 Other chronic pain; M54.31 Sciatica, right side; M48.02 Spinal stenosis, cervical region; M48.061 Spinal stenosis, lumbar region without neurogenic claudication; D69.6 Thrombocytopenia, unspecified; E87.8 Other disorders of electrolyte and fluid balance, not elsewhere classified; E83.52 Hypercalcemia; E11.65 Type 2 diabetes mellitus with hyperglycemia; E88.09 Other disorders of plasma-protein metabolism, not elsewhere classified; E66.811 Obesity, class 1; Z98.49 Cataract extraction status, unspecified eye; Z90.710 Acquired absence of both cervix and uterus; Z90.722 Acquired absence of ovaries, bilateral; Z99.81 Dependence on supplemental oxygen; Z79.82 Long term (current) use of aspirin; Z79.899 Other long term (current) drug therapy; Z98.890 Other specified postprocedural states; Z68.34 Body mass index [BMI] 34.0-34.9, adult; Z87.81 Personal history of (healed) traumatic fracture
CPT/HCPCS: 0241U; 36415; 51702; 71045; 71250; 74176; 80053; 81001; 82306; 82550; 83605; 83735; 83880; 84145; 85025; 86140; 87040; 87077; 87081; 87086; 87088; 87186; 87428; 87430; 93005; 94010; 94640; 96361; 96365; 96367; 96368; 99233; 99238; 99285; A9270-GY; J0295; J0360; J0456; J0696; J1940; J2543; J3475; J3490; J7030; J7040; J7050; J7120; J7613-GY; J7620-GY; P9047

== ENCOUNTER 2024-09-18 10:36 | Inpatient (IN) | payer MEDICARE, BC ==
[2024-09-18] MEDS ORDERED: Sodium Chloride 0.9% 10 ML Syringe FLUSH PRN ×2 (14:27)
[2024-09-18] MEDS ORDERED: Naloxone 2 MG/2 ML Syringe IVPUSH PRN (14:27)
[2024-09-18] MEDS ORDERED: Benzocaine/Cetylpyridinium/Menthol Lozenge MUCMEM PRN (14:27)
[2024-09-18] MEDS ORDERED: Bisacodyl 5 MG Tab PO PRN (14:27)
[2024-09-18] MEDS ORDERED: hydrALAZINE 20 MG/ML SDV IVPUSH PRN (14:27)
[2024-09-18] MEDS ORDERED: Ondansetron 4 MG/2 ML SDV IVPUSH PRN (14:27)
[2024-09-18] MEDS ORDERED: Sennosides/Docusate Sodium 50-8.6 MG Tab PO PRN (14:27)
[2024-09-18] MEDS ORDERED: Metoclopramide 10 MG/2 ML SDV IV PRN (14:27)
[2024-09-18] MEDS ORDERED: Polyethylene Glycol 3350 Powder 17 GM Packet PO PRN (14:27)
[2024-09-18] MEDS ORDERED: Simethicone 80 MG Tab.Chew PO PRN (14:27)
[2024-09-18] MEDS ORDERED: Magnesium Hydroxide 400 MG/5 ML Susp 30 ML Cup PO PRN (14:27)
[2024-09-18] MEDS ORDERED: Melatonin 3 MG Tab PO PRN (14:27)
[2024-09-18] MEDS: Saccharomyces Boulardii (Probiotic) 250 MG Cap PO SCH (20:29)
[2024-09-18] MEDS: amLODIPine 5 MG Tab PO SCH (20:29)
[2024-09-18] MEDS: hydrALAZINE 25 MG Tab PO SCH (20:29)
[2024-09-18] MEDS: Mirtazapine 15 MG Tab PO SCH (20:30)
[2024-09-18] MEDS: traZODone 50 MG Tab PO SCH (20:31)
[2024-09-18] MEDS: Acetaminophen 325 MG Tab PO SCH (20:31)
[2024-09-18] MEDS: Melatonin 3 MG Tab PO PRN (20:31)
[2024-09-18] MEDS: Sodium Chloride 0.9% 10 ML Syringe FLUSH SCH (20:34)
[2024-09-18] MEDS: Diclofenac Sodium 1% Gel 100 GM Tube TOP PRN (20:36)
[2024-09-18] MEDS ORDERED: traZODone 50 MG Tab PO SCH (21:00)
[2024-09-19] MEDS: traMADol 50 MG Tab PO PRN (01:08)
[2024-09-19] MEDS: Levothyroxine 50 MCG Tab PO SCH (05:36)
[2024-09-19] MEDS: Albuterol/Ipratropium 3.0-0.5 MG/3 ML Neb Soln NEB PRN (08:12)
[2024-09-19] MEDS: Azithromycin 500 MG in Sodium Chloride 0.9% 250 ML IV SCH (08:21)
[2024-09-19] MEDS: cefTRIAXone 1 GM Vial IVPUSH SCH (08:24)
[2024-09-19] MEDS: Escitalopram 10 MG Tab PO SCH (08:26)
[2024-09-19] MEDS: Aspirin 81 MG Tab.EC PO SCH (08:26)
[2024-09-19] MEDS: Hydrochlorothiazide 25 MG Tab PO SCH (08:26)
[2024-09-19] MEDS: Losartan 25 MG Tab PO SCH (08:26)
[2024-09-19] MEDS: Metoprolol Succinate 25 MG Tab.ER PO SCH (08:27)
[2024-09-19] MEDS: Modafinil 100 MG Tab PO SCH (08:27)
[2024-09-19] MEDS: Omeprazole 20 MG Cap.CR PO SCH (08:28)
[2024-09-19] MEDS: Lidocaine 5% 700 MG Patch TOP SCH (08:32)
[2024-09-19] MEDS: Multivitamin Tab PO SCH (12:01)
[2024-09-19] MEDS: Modafinil 100 MG Tab PO ONE (12:01)
[2024-09-19] MEDS: Dexamethasone 4 MG/ML SDV IVPUSH ONE (12:40)
[2024-09-19] MEDS: Acetaminophen/HYDROcodone 325-10 MG Tab PO ONE (12:58)
[2024-09-19] MEDS: Formoterol/Mometasone 100-5 MCG 8.8 GM Inhaler INH SCH (13:29)
[2024-09-19] MEDS: Acetaminophen/oxyCODONE 325-5 MG Tab PO PRN (21:34)
[2024-09-20 09:32] LABS: ANION GAP 9.9 mEq/L (7-13); CREATININE 1.1 mg/dL (0.55-1.02); EST CRCL DRUG DOSING (CG) 29.94 mL/min; POTASSIUM,K 3.9 mmol/L (3.5-5.1); URIC ACID 5.5 mg/dL (2.6-6.0)
[2024-09-20] MEDS: predniSONE 20 MG Tab PO SCH (10:23)
[2024-09-20] MEDS: Furosemide 40 MG Tab PO SCH (13:28)
[2024-09-22 06:35] LABS: HEMATOCRIT 26.9 % (37.0-47.0); HEMOGLOBIN 8.4 g/dL (12.0-16.0); MEAN CORPUSCULAR HEMOGLOBIN 32.2 pg (27.0-34.0); MEAN CORPUSCULAR HGB CONC 31.2 g/dL (33.0-35.0); MEAN CORPUSCULAR VOLUME 103.1 fL (80-100); PLATELET COUNT,PLT 154 10^3/uL (150-450); RED BLOOD CELL COUNT 2.61 10^6/uL (4.2-5.4); WHITE BLOOD CELL COUNT,WBC 19.4 10^3/uL (5.0-10.0)
[2024-09-22 06:48] LABS: ALBUMIN 2.3 g/dL (3.4-5.0); ANION GAP 5.2 mEq/L (7-13); BILIRUBIN TOTAL 0.2 mg/dL (0.2-1.0); BUN/CREATININE RATIO 22.1 (No establ ref range); CREATININE 1.04 mg/dL (0.55-1.02); EST CRCL DRUG DOSING (CG) 31.67 mL/min; MAGNESIUM 1.8 mg/dL (1.8-2.4); POTASSIUM,K 4.2 mmol/L (3.5-5.1); PROTEIN TOTAL,TP 6.9 g/dL (6.4-8.2)
[2024-09-22 06:53] LABS: A/G RATIO 0.5
[2024-09-22 07:26] LABS: BAND PERCENT MAN 11 %; LYMPHOCYTES PERCENT MAN 13 % (20-50); MONOCYTES PERCENT MAN 10 % (2-8); SEG NEUTROPHILS PERCENT MAN 76 % (42-75)
[2024-09-23] MEDS: Mirtazapine 15 MG Tab PO ONE (20:27)
[2024-09-24] MEDS: Mirtazapine 15 MG Tab PO SCH (20:20)
[2024-09-25 09:14] LABS: HEMATOCRIT 28.5 % (37.0-47.0); HEMOGLOBIN 8.7 g/dL (12.0-16.0); MEAN CORPUSCULAR HEMOGLOBIN 31.3 pg (27.0-34.0); MEAN CORPUSCULAR HGB CONC 30.5 g/dL (33.0-35.0); MEAN CORPUSCULAR VOLUME 102.5 fL (80-100); PLATELET COUNT,PLT 156 10^3/uL (150-450); RED BLOOD CELL COUNT 2.78 10^6/uL (4.2-5.4); WHITE BLOOD CELL COUNT,WBC 12.5 10^3/uL (5.0-10.0)
[2024-09-25 10:25] LABS: BAND PERCENT MAN 5 %; LYMPHOCYTES % ATYPICAL MANUAL 3 %; LYMPHOCYTES PERCENT MAN 16 % (20-50); METAMYELOCYTE PERCENT MAN 3; MONOCYTES PERCENT MAN 7 % (2-8); SEG NEUTROPHILS PERCENT MAN 66 % (42-75)
[2024-09-25 10:54] LABS: ALBUMIN 2.5 g/dL (3.4-5.0); ANION GAP 13.9 mEq/L (7-13); BILIRUBIN TOTAL 0.2 mg/dL (0.2-1.0); POTASSIUM,K 3.9 mmol/L (3.5-5.1); PROTEIN TOTAL,TP 7.3 g/dL (6.4-8.2)
[2024-09-25 11:08] LABS: BUN/CREATININE RATIO 26.7 (No establ ref range); C-REACTIVE PROTEIN 3.77 ng/dL (<=0.50); CALCIUM 8.8 mg/dL (8.5-10.1); CREATININE 1.05 mg/dL (0.55-1.02); EST CRCL DRUG DOSING (CG) 31.37 mL/min
[2024-09-25 11:17] LABS: MAGNESIUM 1.9 mg/dL (1.8-2.4)
[2024-09-25 11:20] LABS: A/G RATIO 0.52
[2024-09-26 08:03] VITALS: BP 136/62; PULSE 76
== END 2024-09-26 11:00 | disposition home health service (06) | DRG 947 ==
LOC: DL.MS 14:32
PROVIDERS: ADMIT Internal Medicine; ATTEND Internal Medicine
DX: R53.81 Other malaise (principal); A41.51 Sepsis due to Escherichia coli [E. coli]; J96.01 Acute respiratory failure with hypoxia; R65.20 Severe sepsis without septic shock; N39.0 Urinary tract infection, site not specified; N17.9 Acute kidney failure, unspecified; E87.1 Hypo-osmolality and hyponatremia; I10 Essential (primary) hypertension; K21.9 Gastro-esophageal reflux disease without esophagitis; E78.5 Hyperlipidemia, unspecified; M19.90 Unspecified osteoarthritis, unspecified site; E78.00 Pure hypercholesterolemia, unspecified; H54.7 Unspecified visual loss; H26.9 Unspecified cataract; K59.09 Other constipation; F32.A Depression, unspecified; F42.9 Obsessive-compulsive disorder, unspecified; E03.9 Hypothyroidism, unspecified; Z96.659 Presence of unspecified artificial knee joint; D69.6 Thrombocytopenia, unspecified; E87.70 Fluid overload, unspecified; E11.65 Type 2 diabetes mellitus with hyperglycemia; E83.42 Hypomagnesemia; E80.6 Other disorders of bilirubin metabolism; G47.33 Obstructive sleep apnea (adult) (pediatric); E66.811 Obesity, class 1; E83.52 Hypercalcemia; Z79.51 Long term (current) use of inhaled steroids; Z68.32 Body mass index [BMI] 32.0-32.9, adult; Z85.42 Personal history of malignant neoplasm of other parts of uterus; Z98.49 Cataract extraction status, unspecified eye; Z90.710 Acquired absence of both cervix and uterus; Z98.890 Other specified postprocedural states; Z99.81 Dependence on supplemental oxygen; Z87.891 Personal history of nicotine dependence; Z87.81 Personal history of (healed) traumatic fracture; Z79.82 Long term (current) use of aspirin; Z79.1 Long term (current) use of non-steroidal anti-inflammatories (NSAID); Z79.899 Other long term (current) drug therapy; Z79.02 Long term (current) use of antithrombotics/antiplatelets
CPT/HCPCS: 36415; 71045; 80048; 80053; 83735; 84550; 85025; 86140; 94640; 97110-GO; 97110-GP; 97116-GP; 97161-GP; 97165-GO; 97530-GO; 97530-GP; 97535-GO; 99306; 99309; 99316; A9270-GY; J0456; J0696; J1100; J7050; J7512; J7620-GY

== ENCOUNTER 2024-11-04 12:26 | Emergency (ER) | payer MEDICARE, BC ==
[2024-11-04 12:49] VITALS: PULSE 58
[2024-11-04] MEDS: Dexamethasone 4 MG/ML SDV IM ONE (14:00)
[2024-11-04 14:11] VITALS: BP 142/56
== END 2024-11-04 14:11 | disposition home or self-care (01) ==
LOC: DL.ED 12:26
DX: M54.18 Radiculopathy, sacral and sacrococcygeal region (principal); I10 Essential (primary) hypertension; E78.00 Pure hypercholesterolemia, unspecified; E03.9 Hypothyroidism, unspecified; Z90.710 Acquired absence of both cervix and uterus; Z79.51 Long term (current) use of inhaled steroids; Z79.890 Hormone replacement therapy
CPT/HCPCS: 96372; 99283; 99284; J1100

== ENCOUNTER 2025-04-28 10:47 | Emergency (ER) | payer MEDICARE, BC ==
[2025-04-28 11:59] VITALS: BP 151/58; PULSE 60
[2025-04-28] MEDS: Take Home: Levofloxacin 500 MG Tab, 3 Tab Pack PO ONE (12:35)
== END 2025-04-28 12:48 | disposition home or self-care (01) ==
LOC: DL.ED 10:47
DX: J44.1 Chronic obstructive pulmonary disease with (acute) exacerbation (principal); I10 Essential (primary) hypertension; E78.00 Pure hypercholesterolemia, unspecified; K21.9 Gastro-esophageal reflux disease without esophagitis; E03.9 Hypothyroidism, unspecified; Z79.899 Other long term (current) drug therapy; Z79.890 Hormone replacement therapy; Z90.710 Acquired absence of both cervix and uterus
CPT/HCPCS: 71046; 99285; A9270; 99284

== ENCOUNTER 2025-05-06 11:05 | Emergency (ER) | payer MEDICARE, BC ==
[2025-05-06] MEDS: Ketorolac 30 MG/ML SDV IM ONE (11:17)
[2025-05-06] MEDS: Orphenadrine 60 MG/2 ML Inj IM ONE (11:18)
[2025-05-06 13:12] LABS: APPEARANCE,URINE CLEAR (CLEAR); GLUCOSE,URINE NEGATIVE (NEGATIVE); OCCULT BLOOD,URINE NEGATIVE (NEGATIVE)
[2025-05-06 14:22] VITALS: BP 152/72; PULSE 50
[2025-05-06 18:28] LABS: EPITHELIAL CELLS,URINE OCCASIONAL /HPF (NOT SEEN)
== END 2025-05-06 14:19 | disposition home or self-care (01) ==
LOC: DL.ED 11:05
DX: M54.50 Low back pain, unspecified (principal); G89.29 Other chronic pain; I10 Essential (primary) hypertension; K21.9 Gastro-esophageal reflux disease without esophagitis; E78.00 Pure hypercholesterolemia, unspecified; E03.9 Hypothyroidism, unspecified; Z79.82 Long term (current) use of aspirin; Z79.890 Hormone replacement therapy; Z79.899 Other long term (current) drug therapy; Z90.710 Acquired absence of both cervix and uterus
CPT/HCPCS: 74176; 81001; 96372; 99283; 99284; A9270; J1885; J2360